=== PATIENT | male | born 1975 | race African-American/Black ===

== ENCOUNTER 2017-01-20 16:26 | Emergency (ER) | payer BC ==
[2017-01-20] MEDS ORDERED: COZAAR50 M1 PO (16:36)
[2017-01-20] MEDS ORDERED: PRAVASTATIN SOD10 M1 PO (16:36)
[2017-01-20] MEDS ORDERED: ASPIRIN EC81 MG PO (17:07)
[2017-01-20 18:11] LABS: BASO % 0.3 % (0-2); EOS % 0.4 % (0-7); HCT-HEMATOCRIT 42.6 % (36.0-53.5); HGB-HEMOGLOBIN 14.7 gm/dl (13.5-17.0); IMMATURE GRANULOCYTES ABSOLUTE 0.01 tho/cmm (0-0.03); IMMATURE GRANULOCYTES PERCENT 0.1 % (0-0.3); LYMPH % 27.8 % (20-45); LYMPH ABSOLUTE COUNT 1.9 tho/cmm (0.8-4.5); MCH (MEAN CORPUSCULAR HGB) 29.6 pg (28.0-32.0); MCHC MEAN CORPUSCULAR HGB CONC 34.5 % (32.0-36.0); MCV (MEAN CELL VOLUME) 85.7 fl (82.0-96.0); MEAN PLATELET VOLUME 9.8 cmc (9.4-12.4); MONO % 7.9 % (0-12); MONOCYTE ABSOLUTE COUNT 0.5 tho/cmm (0.0-1.2); NEUTROPHIL ABSOLUTE COUNT 4.3 tho/cmm (1.6-8.0); NEUTROPHIL-AUTOMATED 4.3 tho/cmm (1.6-8.0); NEUTROPHILS % 63.5 % (40-80); PLATELET COUNT 178 tho/cmm (150-450); RED BLOOD COUNT 4.97 mil/cmm (4.40-5.70); RED CELL DISTRIBUTION WIDTH 14.1 % (12.4-16.4); WHITE BLOOD COUNT 6.8 tho/cmm (4.0-10.0)
[2017-01-20 18:24] LABS: ALKALINE PHOSPHATASE 62 U/L (33-138); ALT/SGPT 50 U/L (12-78); ANION GAP 11 mmol/L (0-20); AST/SGOT 27 U/L (10-40); BILIRUBIN,TOTAL 0.4 mg/dl (0.0-1.5); BLOOD UREA NITROGEN 14 mg/dl (6-24); CALCIUM 8.9 mg/dl (8.5-10.5); CARBON DIOXIDE-VENOUS 28 mmol/L (22-32); CHLORIDE 106 mmol/l (96-110); CREATININE 1.04 mg/dl (0.60-1.30); GLUCOSE 95 mg/dL (70-110); POTASSIUM 4.2 mmol/L (3.7-5.1); SODIUM 141 mmol/L (135-145); eGFR VALUE FOR BLACK >90 mL/Min
[2017-01-20] MEDS ORDERED: MECLIZINE HCL25 M3 PO (19:07)
== END 2017-01-20 19:32 ==
LOC: EDMED 16:26
PROVIDERS: Nurse Practitioner Family
DX: H81.399 Other peripheral vertigo, unspecified ear (principal); I10 Essential (primary) hypertension; Z79.82 Long term (current) use of aspirin; Z79.899 Other long term (current) drug therapy